=== PATIENT | female | born 1990 | race Caucasian/White ===

== ENCOUNTER → 2022-12-10 14:25 | Outpatient (BNVA) | payer OTHER, SELFPAY | PROVIDERS: PCP Internal Medicine; Visit Provider Nurse Practitioner Family | DX: G43.009 Migraine without aura, not intractable, without status migrainosus (principal); R11.15 Cyclical vomiting syndrome unrelated to migraine; R79.89 Other specified abnormal findings of blood chemistry | CPT/HCPCS: 99202 ==

== ENCOUNTER 2023-01-26 09:30 | Outpatient (REF) | payer OTHER, SELFPAY ==
--- NOTE | ~2023-01-26 | MR_ITS ---
EXAMINATION: MR BRAIN WITHOUT AND WITH CONTRAST CLINICAL INFORMATION: Question pituitary mass. COMPARISON: No relevant prior imaging. TECHNIQUE: Multiplanar MR imaging of the brain was performed without and with contrast. A total of 3.5 mL Gadavist was utilized for this examination. FINDINGS: There is a questionable focus of relative hypoenhancement located along the right lateral aspect of the anterior lobe of the pituitary gland measuring approximately 0.4 cm in diameter best visualized on coronal postcontrast image 10 of 16 series 9 and on sagittal image 11 of 16 series 10. The overall height of the pituitary tissue however maintained within limits of normal variation. There is no suprasellar mass effect or chiasmatic compression. The pituitary stalk is midline. Cavernous sinuses enhance symmetrically. Postcontrast images of the whole brain reveal no abnormal intracranial mass or enhancement. No intracranial mass effect or midline shift. Lateral and third ventricles are normal. No hydrocephalus. Midline structures including the cervicomedullary junction are normal. No acute territorial infarct. Intracranial vascular flow voids are grossly maintained. There is no mastoid middle ear effusion. No active paranasal sinus disease. MR/MR head/brain wo/w con IMPRESSION: There is a questionable ovoid focus of differential enhancement located along the right lateral aspect of the anterior lobe of the pituitary gland measuring approximately 0.4 cm in diameter that may represent a pituitary microadenoma. Otherwise normal brain MRI.
== END 2023-01-26 09:31 | disposition home or self-care (01) ==
LOC: HO.MRI 09:30
PROVIDERS: PCP Internal Medicine; Visit Provider Nurse Practitioner Family
DX: G43.009 Migraine without aura, not intractable, without status migrainosus (principal); R23.3 Spontaneous ecchymoses; R63.4 Abnormal weight loss; R79.89 Other specified abnormal findings of blood chemistry
CPT/HCPCS: 70553; A9585

== ENCOUNTER 2023-03-23 15:07 | Outpatient (AMB) | payer OTHER, SELFPAY ==
--- NOTE | 2023-03-23 15:31 | A.OFFVIS_ITS ---
Intake Vital Signs 03/23/23 15:32 Height 5 ft 3 in Weight 145 lb 4 oz BMI 25.7 BP 110/78 Blood Pressure Location Rt brachial Position Sitting Pulse 77 Pulse Source Pulse Oximeter Pulse Oximetry (%) 99 Oxygen Delivery Method Room Air Intake Visit Reasons: follow up Headaches - Confirmed Intake Note: Patient presents for follow up headaches. Patient states My headaches have gotten a little better, not by a ton i went for second opinion and my eligibility clerk doubled my amitryptiline and i think that's made it better Allergies No Known Allergies Allergy (Verified 03/23/23 15:36) Medication List - Last Reconciled 03/23/23 by MARLA Soto amitriptyline 10 - 20 mg (1 - 2 x 10 mg) PO BEDTIME 30 days cholecalciferol (vitamin D3) 50 mcg PO DAILY hydroxyzine HCl 25 mg PO TID metoclopramide HCl 5 mg PO QID ondansetron HCl 8 mg PO TID pantoprazole 40 mg PO DAILY rizatriptan 5 - 10 mg (0.5 - 1 x 10 mg) PO Q2H PRN 28 days trazodone 25 mg PO BEDTIME HPI HPI Comments History of Present Illness Details 32-yr-old female presents for f/u visit. Pt denies any significant interval medical changes. Brain MRI was unremarkable w/ exception of a 0.4cm ovoid focus, which may reflect a pituitary microadenoma. Pt did have GI consult about a month ago- she was advised to try increasing the Amitriptyline to 20mg qhs. She feels that the migraine attacks are not as intense and not as frequent. Now reports 1-2 migraine attacks per week. She is using Rizatriptan- helps but still needs to sleep for few hours. 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 Has appt w/ new GI, Dr Murrieta, coming up as well. 12/2022, [facility] [place], MR/MR head/brain wo/w con IMPRESSION: There is a questionable ovoid focus of differential enhancement located along the right lateral aspect of the anterior lobe of the pituitary gland measuring approximately 0.4 cm in diameter that may represent a pituitary microadenoma. Otherwise normal brain MRI. [facility] Medical History (Updated 12/10/22 @ 17:05 by MARLA Soto) Anxiety and depression Constipation Diarrhea Easy bruising Renal mass, left Weight loss Surgical History Hx of cholecystectomy Hx of eye surgery [place] teeth extracted Family History Maternal Grandmother Hypertension Father Hypertension Atrial fibrillation Arthritis Mother Insomnia Fibromyalgia Dizziness Syncope Paternal Aunt Breast cancer Sister Migraines Social History Alcohol intake: current Patient Tobacco Use Status: Current everyday Tobacco user Review of Systems Const All systems reviewed & are unremarkable except as noted in HPI and below Physical Exam Vital Signs: Last Vital Signs Pulse 77 03/23/23 15:32 BP 110/78 03/23/23 15:32 Pulse Ox 99 03/23/23 15:32 Oxygen Delivery Method Room Air 03/23/23 15:32 BMI result Body Mass Index 25.7 Const General: cooperative and no acute distress Orientation/consciousness: patient oriented x3 HEENT Head: Yes normocephalic Resp Effort & Inspection: normal respiratory effort and able to speak in complete sentences Neuro General: patient oriented x3, gait normal and CN's II-XI intact bilaterally Cognition (Neuro): normal cognition Motor exam (neuro): 5/5 motor strength present throughout Psych Appearance: grossly normal Mental Status: mental status grossly normal Speech and movement: Normal speech and movement present Affect: normal affect Attitude: cooperative Thought process: Normal thought process present Thought content: Normal thought content present Insight: Good insight present (Psych) Judgement: Good judgement present (Psych) Assessment & Plan Assessment & Plan (1) Migraine without aura: Code(s): G43.009 - Migraine without aura, not intractable, without status migrainosus (2) Cyclic vomiting syndrome: Code(s): R11.15 - Cyclical vomiting syndrome unrelated to migraine Plan Reviewed Brain MRI report- normal w/ ? of 0.4cm microadenoma. F/u w/ GI and endocrinology as scheduled. For overall headache management: Discussed importance of good self-care, including but not limited to maintaining a healthy diet, adequate fluid intake, adequate sleep, and engaging in regular physical activity. For headache triggers: Track headaches and GI s/s. Future considerations: HST. ? For acute headache treatment: Continue Rizatriptan 10mg tab, 1/2 - 1 tab (5-10mg) at onset of headache, may repeat in 2 hours. Max of 2 tabs (200mg) per 24 hours. May adjunct with OTC Tylenol 650mg q 4 hours, Excedrin 1-2 tabs prn. Previous acute migraine medication trials: Imitrex injection- caused neck tightness Acute migraine medication contraindications: Imitrex- not tolerated. ? For headache prevention medication: Increase Amitriptyline to 30mg qhs (8-9 hrs prior to wake up time)- also for cyclic vomiting s/s. Previous migraine prevention medication trials: Nortiptyline when in highschool- unsure why she stopped. Migraine prevention medication contraindications: None at this time. ? Pt to follow-up in 3 months or sooner prn. Medications: Changed From amitriptyline 10 - 20 mg (1 - 2 x 10 mg) PO BEDTIME 30 days 60 tabs 3RF To amitriptyline 30 mg (3 x 10 mg) PO BEDTIME 30 days 90 tabs 3RF Coding Level of Care Code Est Pt Level 4 (78117) Diagnoses Migraine without aura G43.009 Cyclic vomiting syndrome R11.15
[2023-03-23 15:32] VITALS: BP 110/78; PULSE 77; O2SAT 99; BMI 25.7
== END 2023-03-23 16:22 | disposition home or self-care (01) ==
PROVIDERS: Visit Provider Nurse Practitioner Family
DX: G43.009 Migraine without aura, not intractable, without status migrainosus (principal); R11.15 Cyclical vomiting syndrome unrelated to migraine
CPT/HCPCS: 99214

== ENCOUNTER → 2023-03-23 15:07 | Outpatient (BNVA) | payer OTHER, SELFPAY | PROVIDERS: Visit Provider Nurse Practitioner Family | DX: G43.009 Migraine without aura, not intractable, without status migrainosus (principal); R11.15 Cyclical vomiting syndrome unrelated to migraine; Z79.899 Other long term (current) drug therapy | CPT/HCPCS: 99212 ==

== ENCOUNTER 2023-10-06 13:52 | Outpatient (AMB) | payer OTHER, SELFPAY ==
--- NOTE | 2023-10-06 14:00 | MHC.OFFVIS ---
Intake Vital Signs 10/06/23 14:03 Height 5 ft 3 in BP 114/72 Blood Pressure Location Rt brachial Position Sitting Pulse 93 Pulse Source Pulse Oximeter Pulse Oximetry (%) 98 Oxygen Delivery Method Room Air Intake Visit Reasons: 3 mo f/u for Headaches-LVM Intake Note: Patient presents for 3 month follow up.patient still having the headaches Allergies No Known Allergies Allergy (Verified 10/06/23 14:03) Medication List - Last Reconciled 10/06/23 by MARLA Soto amitriptyline 30 mg (3 x 10 mg) PO BEDTIME 30 days cholecalciferol (vitamin D3) 50 mcg PO DAILY hydroxyzine HCl 25 mg PO TID metoclopramide HCl 5 mg PO QID ondansetron HCl 8 mg PO TID pantoprazole 40 mg PO DAILY rizatriptan 5 - 10 mg (0.5 - 1 x 10 mg) PO Q2H PRN 28 days trazodone 25 mg PO BEDTIME HPI HPI Comments History of Present Illness Details 32-yr-old female presents for f/u visit. Pt denies any significant interval medical changes. She had to reschedule her GI and endocrinology appt's d/t insurance issues. She has been working more hrs d/t staffing issues at her job- works in [employer]. Her migraine shave been stable. More intense ones seem to be a/w her menses. She has had 5 migraine attacks in the past 2 weeks- feels this is an improvement. Not having as much N/V unless having a more severe migraine. Feels the Amitriptyline 30mg is helpful. Tolerating well. Rizatriptan can help, occasionally may need to repeat a dose. Does try Tylenol 1st if milder. She has not been needing to take the Reglan as much. Usually using the Zofran prn. Not using the hydroxizyne as much. Now seeing a therapist who is helping her develop develop strategies to reduce stress- ie meditation. Baseline headache characteristics: Prodrome symptoms of light pressure in congregation region, more sensitive to bending over- can cause a flash of pressure Severe, Hammering retrororbital, eyes, frontal and holocranial headaches a/w may see little dots, photophobia, phonophobia, osmophobia, N/V, allodynia, fatigue, brain fog, watery red painful eyes.grace, PFSH Medical History (Updated 12/10/22 @ 17:05 by MARLA Soto) Easy bruising Diarrhea Constipation Weight loss Renal mass, left Anxiety and depression Surgical History Hx of cholecystectomy [place] teeth extracted Hx of eye surgery Family History Maternal Grandmother Hypertension Father Hypertension Atrial fibrillation Arthritis Mother Insomnia Fibromyalgia Dizziness Syncope Paternal Aunt Breast cancer Sister Migraines Social History Alcohol intake: current Patient Tobacco Use Status: Current everyday Tobacco user Physical Exam Vital Signs: Last Vital Signs Pulse 93 10/06/23 14:03 BP 114/72 10/06/23 14:03 Pulse Ox 98 10/06/23 14:03 Oxygen Delivery Method Room Air 10/06/23 14:03 Const General: cooperative and no acute distress Orientation/consciousness: patient oriented x3 Resp Effort & Inspection: normal respiratory effort and able to speak in complete sentences Neuro General: patient oriented x3 Cranial nerves: Yes CN's II-XII intact bilaterally Cognition (Neuro): normal cognition Psych Appearance: grossly normal Mental Status: mental status grossly normal Speech and movement: Normal speech and movement present Affect: normal affect Attitude: cooperative Assessment & Plan Assessment & Plan (1) Migraine without aura: Code(s): G43.009 - Migraine without aura, not intractable, without status migrainosus (2) Cyclic vomiting syndrome: Code(s): R11.15 - Cyclical vomiting syndrome unrelated to migraine Plan Previous Brain MRI report- normal w/ ? of 0.4cm microadenoma. F/u w/ GI and endocrinology as scheduled. ? For overall headache management: Continue to optimize good self-care, including but not limited to maintaining a healthy diet, adequate fluid intake, adequate sleep, and engaging in regular physical activity. For headache triggers: Track headaches and GI s/s. Future considerations: HST. ? For acute headache treatment: Continue Rizatriptan 10mg tab, 1/2 - 1 tab (5-10mg) at onset of headache, may repeat in 2 hours. Max of 2 tabs (200mg) per 24 hours. May adjunct with OTC Tylenol 650mg q 4 hours, Excedrin 1-2 tabs prn. Metoclopramide 5mg prn- use sparingly Ondansetron 8mg tid prn Previous acute migraine medication trials: Imitrex tab- not tolerated.Imitrex injection- caused neck tightness Acute migraine medication contraindications: none at this time. ? For headache prevention medication: Increase Amitriptyline from 30mg qhs to 37.5-50mg qhs (8-9 hrs prior to wake up time)- also for cyclic vomiting s/s. Previous migraine prevention medication trials: Nortiptyline when in highschool- unsure why she stopped. Migraine prevention medication contraindications: None at this time. ? Pt to follow-up in 5-6 months or sooner prn. Medications: New amitriptyline 37.5 - 50 mg (1.5 - 2 x 25 mg) PO BEDTIME 60 tabs 6RF 30 days Refilled rizatriptan max 2 tabs per day or 4 tabs per week 5 - 10 mg (0.5 - 1 x 10 mg) PO Q2H PRN 12 tabs 6RF migraine headache 28 days Discontinued amitriptyline Discontinued Reason: Doctor's Order 30 mg (3 x 10 mg) PO BEDTIME 30 days 90 tabs 3RF Coding Level of Care Code Est Pt Level 4 (82573) Diagnoses Migraine without aura G43.009 Cyclic vomiting syndrome R11.15
[2023-10-06 14:03] VITALS: BP 114/72; PULSE 93; O2SAT 98
== END 2023-10-06 14:36 | disposition home or self-care (01) ==
PROVIDERS: PCP Internal Medicine; Visit Provider Nurse Practitioner Family
DX: G43.009 Migraine without aura, not intractable, without status migrainosus (principal); R11.15 Cyclical vomiting syndrome unrelated to migraine
CPT/HCPCS: 99214

== ENCOUNTER → 2023-10-06 13:52 | Outpatient (BNVA) | payer OTHER, SELFPAY | PROVIDERS: PCP Internal Medicine; Visit Provider Nurse Practitioner Family | DX: G43.009 Migraine without aura, not intractable, without status migrainosus (principal); R11.15 Cyclical vomiting syndrome unrelated to migraine | CPT/HCPCS: 99212 ==